=== PATIENT | female | born 1950 | race Caucasian/White ===

== ENCOUNTER 2017-12-13 00:29 | Outpatient (CLI) | payer MEDICARE, BC, SELFPAY ==
--- NOTE | 2017-12-13 09:25 | DI.MAMMO_ITS ---
SYMPTOM/DIAGNOSIS: SCREENING, PERSONAL H/O BREAST CA, D05.10 MAMMOGRAMS: Mammograms were interpreted according to the usual protocol including computer analysis with CAD system, tomosynthesis and C view imaging. Comparison is made with prior examinations. Patient is status post left mastectomy. Breast density, Category C. No suspicious masses or microcalcifications are seen. There has been no significant change compared to the prior examinations. IMPRESSION: No evidence for malignancy. Yearly mammography is recommended. Category 1. MQSA ASSESSMENT OF FINDINGS: Negative. Category 1. Patient will receive a letter notifying them of these results. Bi-RADS category C. The breasts are heterogeneously dense, which may obscure small masses.
== END 2017-12-13 00:49 ==
PROVIDERS: PCP Family Medicine; Visit Provider Family Medicine
DX: Z12.31 Encounter for screening mammogram for malignant neoplasm of breast (principal); Z85.3 Personal history of malignant neoplasm of breast
CPT/HCPCS: 77063; 77067

== ENCOUNTER 2017-12-23 14:23 | Outpatient (CLI) | payer MEDICARE, BC, SELFPAY ==
[2017-12-23 15:50] LABS: HCT 37.1 % (36.0-46.0); HGB 12.3 g/dL (12.0-15.5); Mean Corp. HGB Concentration 33.2 g/dL (32.0-36.0); Mean Corpuscular Hemoglobin 30.6 pg (27.0-33.0); Mean Corpuscular Volume 92.3 fL (80-95); Mean Platelet Volume 9.9 fL (8.0-11.0); Platelet Count 266 x1000/uL (130-400); RBC 4.02 m/cumm (4.00-5.20); White Blood Cell Count 4.44 k/cumm (4.4-10.8)
[2017-12-23 16:16] LABS: ALT 30 U/L (12-78); AST 24 U/L (15-37); Alkaline Phosphatase 70 U/L (46-116); Anion Gap 11.4 mmol/L (3-11); BUN 14 mg/dL (7-18); Bilirubin, Total 0.4 mg/dL (0.2-1.0); CO2 26.6 mmol/L (21.0-32.0); Calcium 9.1 mg/dL (8.5-10.1); Chloride 102 mmol/L (98-107); Glucose 128 mg/dL (70-100); Potassium 4.2 mmol/L (3.5-5.1); Sodium 140 mmol/L (136-145); Total Protein 6.9 g/dL (6.4-8.2)
== END 2017-12-23 14:43 ==
PROVIDERS: PCP Family Medicine; Visit Provider Family Medicine
DX: R30.0 Dysuria; Z01.818 Encounter for other preprocedural examination
CPT/HCPCS: 36415; 80053; 85027; 87077; 81003; 87086; 87186

== ENCOUNTER → 2018-10-21 10:56 | Outpatient (BNVA) | payer MEDICARE, BC, SELFPAY | PROVIDERS: PCP Family Medicine; Referring Provider Family Medicine; Visit Provider Physical Therapy Assistant | DX: K21.9 Gastro-esophageal reflux disease without esophagitis (principal); Z12.11 Encounter for screening for malignant neoplasm of colon | CPT/HCPCS: 99213 ==

== ENCOUNTER 2018-10-25 16:30 | Outpatient (CLI) | payer MEDICARE, BC, SELFPAY ==
--- NOTE | 2018-10-25 14:50 | DI.DEXA_ITS ---
SYMPTOM/DIAGNOSIS: OSTEOPENIA, M85.88 DEXA SCAN: Dexa scan was performed according to the usual protocol. Please see the data sheets on PAC's. The findings for lumbar spine scanning are T score of 1.5, L 4 is excluded due to presence of metallic fixation devices. Left hip scanning shows T score of -.1 with left femoral neck T score of -.9. Right forearm scanning shows T score of -1.9. CONCLUSION: Findings consistent with osteopenia. Lateral vertebral scanogram shows mild loss of height anteriorly of a couple mid thoracic vertebral bodies. The findings are consistent with mild chronic compression fractures. Prior scanning of 05/2008 showed left hip T score of 1.1 and lumbar spine T score of 1.7.
== END 2018-10-25 16:50 ==
PROVIDERS: PCP Family Medicine; Visit Provider Family Medicine
DX: M85.88 Other specified disorders of bone density and structure, other site (principal); M48.54XD Collapsed vertebra, not elsewhere classified, thoracic region, subsequent encounter for fracture with routine healing
CPT/HCPCS: 77080

== ENCOUNTER 2018-10-28 07:50 | Outpatient (CLI) | payer MEDICARE, BC, SELFPAY ==
--- NOTE | 2018-10-28 08:19 | MERGE_ITS ---
*[facility]* *[facility]* [address] [place] [address] Date of study: 10/28/2018 Transthoracic Echocardiography M-mode, complete 2D, complete spectral Doppler, and color Doppler *STUDY CONCLUSIONS* Summary: 1. Left ventricle: The cavity size was normal. Wall thickness was normal. Systolic function was normal. The estimated ejection fraction was 55-60%. Wall motion was normal; there were no regional wall motion abnormalities. 2. Right ventricle: The cavity size was normal. Wall thickness was normal. Systolic function was normal. 3. Pulmonary arteries: Pulmonary systolic pressure was at the upper limits of normal. PA peak pressure: 33mm Hg (S). *PATIENT PRESENTATION* Height: 162.6cm (64in ) S/D Pressure: 152 / 82 Weight: 68kg (149.7lb ) BSA: 1.77m^2 Test start time: 08:30 AM. Test stop time: 09:25 AM. CONSULTING Megan Lowery ORDERING Megan Lowery REFERRING Megan Lowery PERFORMING Unknown PERFORMING [facility] [employer] Vivien Baum *PROCEDURE DATA* Procedure information: This study was interpreted by [facility]. Pertinent images and digital data are archived for permanent storage and are available for subsequent review. Study status: Routine. Transthoracic echocardiography. M-mode, complete 2D, complete spectral Doppler, and color Doppler. A Transthoracic Echocardiogram was performed. Scanning was performed from the parasternal, apical, subcostal, and suprasternal notch acoustic windows. Images were obtained using an [employer] SC 2000 cardiac ultrasound machine. Image quality was adequate. Study completion: The patient tolerated the procedure well. History: PMH: SOB. *CARDIAC ANATOMY* Left ventricle: The cavity size was normal. Wall thickness was normal. Systolic function was normal. The estimated ejection fraction was 55-60%. Wall motion was normal; there were no regional wall motion abnormalities. Aortic valve: Trileaflet; normal thickness leaflets. Mobility was not restricted. Doppler: Transvalvular velocity was within the normal range. There was no stenosis. There was no significant regurgitation. VTI ratio of LVOT to aortic valve: 0.72. Valve area (VTI): 2cm^2. Indexed valve area (VTI): 1.1cm^2/m^2. Peak velocity ratio of LVOT to aortic valve: 0.72. Valve area (Vmax): 2cm^2. Indexed valve area (Vmax): 1.1cm^2/m^2. Mean velocity ratio of LVOT to aortic valve: 0.68. Valve area (Vmean): 1.9cm^2. Indexed valve area (Vmean): 1.1cm^2/m^2. Mean gradient (S): 3.2mm Hg. Peak gradient (S): 6.1mm Hg. Aorta: Aortic root: The aortic root was normal in size. Ascending aorta: The ascending aorta was normal in size. Mitral valve: Structurally normal valve. Mobility was not restricted. Doppler: Transvalvular velocity was within the normal range. There was no evidence for stenosis. There was trivial regurgitation. Valve area by pressure half-time: 3.3cm^2. Indexed valve area by pressure half-time: 1.8cm^2/m^2. Left atrium: The atrium was at the upper limits of normal in size. Right ventricle: The cavity size was normal. Wall thickness was normal. Systolic function was normal. Pulmonic valve: Poorly visualized. Doppler: Transvalvular velocity was within the normal range. There was no evidence for stenosis. There was no significant regurgitation. Peak gradient (S): 1.8mm Hg. Tricuspid valve: Structurally normal valve. Doppler: Transvalvular velocity was within the normal range. There was no evidence for stenosis. There was trivial regurgitation. Pulmonary artery: Poorly visualized. Pulmonary systolic pressure was at the upper limits of normal. Right atrium: The atrium was normal in size. Pericardium: There was no pericardial effusion. Systemic veins: Inferior vena cava: The vessel was dilated. The respirophasic diameter changes were blunted (less than 50%), consistent with elevated central venous pressure. Diameter: 2.2cm. Measurements IVC Value Reference ID 2.2 cm Left ventricle Value Reference LV ID, ED, PLAX 4.5 cm 3.5 - 6.0 LV ID, ES, PLAX 3.1 cm 2.1 - 4.0 LV PW thickness, ED, PLAX 0.9 cm LV end-diastolic volume, 1-p A2C 81 ml LV ejection fraction, 1-p A2C 61 % LV end-diastolic volume, 1-p A4C 78 ml LV ejection fraction, 1-p A4C 55 % LV e', lateral 0.083 m/sec LV E/e', lateral 8 LV e', medial 0.092 m/sec LV E/e', medial 7 LV e', average 0.088 m/sec LV E/e', average 8 Ventricular septum Value Reference IVS thickness, ED, PLAX 0.9 cm LVOT Value Reference LVOT ID, A-P 1.9 cm LVOT area 2.8 cm^2 LVOT peak velocity, S 0.89 m/sec LVOT mean velocity, S 0.57 m/sec LVOT VTI, S 18.6 cm LVOT peak gradient, S 3.2 mm Hg LVOT mean gradient, S 1.5 mm Hg Stroke volume (SV), LVOT DP 51 ml Stroke index (SV/bsa), LVOT DP 29 ml/m^2 Aortic valve Value Reference Aortic valve peak velocity, S 1.2 m/sec Aortic valve mean velocity, S 0.8 m/sec Aortic valve VTI, S 26.0 cm Aortic mean gradient, S 3.2 mm Hg Aortic peak gradient, S 6.1 mm Hg VTI ratio, LVOT/AV 0.72 Aortic valve area, VTI 2 cm^2 Velocity ratio, peak, LVOT/AV 0.72 Aortic valve area, peak velocity 2 cm^2 Velocity ratio, mean, LVOT/AV 0.68 Aortic valve area, mean velocity 1.9 cm^2 Aortic valve area/bsa, mean velocity 1.1 cm^2/m^2 Aorta Value Reference Aortic root ID, ED 3.2 cm Ascending aorta ID, A-P, S 3.3 cm Left atrium Value Reference LA ID, A-P, ES 3.1 cm LA ID/bsa, A-P 1.8 cm/m^2 <=2.2 LA volume, ES, 2-p 50 ml LA volume/bsa, ES, 2-p 29 ml/m^2 LA/aortic root ratio 0.97 Mitral valve Value Reference Mitral E-wave peak velocity 0.66 m/sec Mitral A-wave peak velocity 0.74 m/sec Mitral deceleration time (H) 233 ms 150 - 230 Mitral pressure half-time 68 ms Mitral E/A ratio, peak 0.89 Mitral valve area, PHT, DP 3.3 cm^2 Pulmonary arteries Value Reference PA pressure, S, DP (H) 33 mm Hg <=30 Tricuspid valve Value Reference Tricuspid regurg peak velocity 2.2 m/sec Tricuspid peak RV-RA gradient 19.5 mm Hg Right atrium Value Reference RA area, ES, A4C 13.8 cm^2 8.3 - 19.5 Systemic veins Value Reference Estimated CVP 15 mm Hg Right ventricle Value Reference RV pressure, S, DP (H) 35 mm Hg <=30 Pulmonic valve Value Reference Pulmonic peak gradient, S 1.8 mm Hg Legend: (L) and (H) enrico values outside specified reference range. I have personally reviewed the images and have reviewed and edited the reported findings. Electronically signed by Maricruz Gauthier 10/30/2018 09:59
== END 2018-10-28 08:10 ==
PROVIDERS: PCP Family Medicine; Visit Provider Family Medicine
DX: R06.02 Shortness of breath (principal)
CPT/HCPCS: 93306

== ENCOUNTER 2018-11-14 07:54 | Day surgery (SDC) | payer MEDICARE, BC, SELFPAY ==
--- NOTE | 2018-11-14 07:02 | W.PM.ENDDOP ---
Date of service: 11/14/18 Time of Service: 10:16 Endoscopy Report DATE OF PROCEDURE: 11/14/18 PRE-OP DIAGNOSIS: Colon Cancer Screening and GERD PROCEDURE: 1. EGD with bx 2. Colonoscopy with biopsy SURGEON: Tamy Adler ANESTHESIA: other (General/ ASA 2/Connie Rod, GISSELLE) ESTIMATED BLOOD LOSS: 3 PATHOLOGY: other (GE junction, ascending colon bx x3) COMPLICATIONS: None DISPOSITION: same day INDICATIONS: Mrs. Harman is a pleasant 68 year old female seen in the office for a screening colonoscopy and also for GERD. Last colonoscopy was in 2003 and was unremarkable. EGD and Colonoscopy were recommended. Risks, benefits and complications have been reviewed. Complications include but are not limited to bleeding, pain, perforation, missed small lesion/polyp, sore throat, aspiration and adverse reaction to the medications. Questions were entertained and answered to their satisfaction and they wished to proceed. No guarantees were given or implied. PREP: Miralax/Dulcolax PROCEDURE START TIME: 10:16 PROCEDURE END TIME: 11:13 COLONOSCOPY RETRACTION TIME: 23 minutes FINDINGS: Normal duodenum. No inflammation in the stomach. benign fundic gland polyps. Slight irregularity of the GE junction without inflammation PROCEDURE DESCRIPTION: After informed consent was obtained the patient was take to the procedure room and placed in a supine position. Monitors were applied and a time out was done. The patients name, date of , procedure type, allergies to medications and metal in their body was reviewed. A bite block was placed and the patient was sedated. Once sedated and comfortable the gastroscope was advanced through the oropharynx which was grossly normal into the esophagus. The proximal,mid-esophagus and distal esophagus were normal. The scope was advanced into the stomach and through the pylorus into the 3rd portion of the duodenum. The duodenum was noted to be normal. The scope was retracted back into the stomach which had no inflammation. There were benign fundic gland polyps noted. The scope was retroflexed. The cardia and fundus were noted to be normal. There was no hiatal hernia noted. The scope was retracted back into the esophagus and biopsies were done of the GE junction to rule out Mcnamara's. The Z line was irregular only in small area. The GE junction was at 40 cm. Biopsies of the GE junction were done. While the patient was still sedated they were placed in a left decubitous position. A rectal exam was done. External exam was normal. Internal exam revealed a normal sphincter tone and no palpable masses. The scope was then introduced and retro-flexed. Grade 1 internal hemorrhoids were identified. There were no masses or polyps identified. The scope was then advanced to the cecum with some difficulty due to tortuosity. The TI and appendiceal orifice were identified. The prep was adequate. The scope was then slowly retracted over 23 minutes back into the rectum. 3 sessile polyps were removed with forceps in the ascending colon just distal to the cecum. The scope was removed and the patient was woken up and taken back to Same day surgery in stable condition. The patient tolerated the procedure well and there were no immediate complications. Follow up: depends on final pathology.
--- NOTE | 2018-11-14 07:04 | W.PM.DSUDISC ---
Discharge Plan Disposition Patient Disposition: HOME Condition: Good Discharge Details Reason For Visit: Colon Cancer Screening/ GERD Attending Provider: Tamy Adler Primary Care Provider: Megan Lowery Home Meds and New Rx's Prescriptions: Continued estradiol [Vagifem] 10 mcg tablet 10 mcg VG PRN RF: 0 fluticasone propion-salmeterol [Advair Diskus] 250-50 mcg/dose blister with device 1 inh IH BID Qty: 180 RF: 4 MIRALAX 527 GM powder 17 g PO PRN RF: 0 cetirizine [Zyrtec] 10 MG tablet 1 tab PO DAILY Qty: 90 RF: 4 fluticasone propion-salmeterol [Advair Diskus] 1 EACH blister with device 1 puff Inhalation BID Qty: 3 RF: 4 cyclobenzaprine 10 MG tablet 10 mg PO TID PRNQty: 90 RF: 1 levetiracetam [Keppra] 250 mg tablet 250 mg PO BID Qty: 180 RF: 12 fluticasone propionate 50 mcg/actuation spray,suspension 1 spray NS BID Qty: 3 RF: 12 pantoprazole 40 mg tablet,delayed release (DR/EC) 40 mg PO DAILY Qty: 90 RF: 11 duloxetine 60 mg capsule,delayed release(DR/EC) 60 mg PO DAILY Qty: 90 RF: 12 celecoxib [Celebrex] 200 mg capsule 200 mg PO DAILY Qty: 90 RF: 4 temazepam 7.5 mg capsule 7.5 mg PO QHS PRN (Reason: sleep) Qty: 30 RF: 3 acetaminophen [Tylenol Arthritis] 650 mg tablet extended release 1,300 mg PO DAILY PRNRF: 0 diclofenac sodium 3 % gel 2 - 4 gm TP BID Qty: 100 RF: 3 Discontinued bisacodyl [Dulcolax (bisacodyl)] 5 mg tablet,delayed release (DR/EC) 5 mg PO ONCE Qty: 4 RF: 0 polyethylene glycol 3350 17 gram/dose powder 238 g PO ONCE Qty: 238 RF: 0 Discharge Instructions Instructions: Colorectal Polyps (GEN), Hemorrhoids (ED) Additional Instructions: Findings: 3 sessile polyps Normal upper Follow up: depends on final pathology Please call if you develop: fevers >101.5 Nausea or Vomiting Abdominal pain that is not transient DAY SURGERY UNIT POST ENDOSCOPY INSTRUCTIONS 1. Because there will be medication in your system for the next 24 hours, you may feel a little sleepy. Your coordination will be affected. Therefore: a. Do not drive or operate dangerous equipment for 24 hours. b. Do not drink alcohol beverages for 24 hours (not even beer). c. Plan to go home and rest for the day. 2. Generally there are no restrictions on your activity after a day or so has gone by, but you may feel a bit fatigued for a few days. 3 After you arrive home you may have a light meal and return to a normal diet as you can tolerate it without feeling sick to your stomach. 4. After surgery, you may feel pain or discomfort. This should be only transient, but if it persists please contact your doctor. 5. If there are any questions regarding the findings of your procedure, please feel free to contact your doctor. 6. If you are unable to contact your doctor with a problem, contact the hospital at [phone]. 7. Continue all your regular medications unless directed otherwise. I understand the above instructions and have no questions. Signature of Patient or Responsible Adult Escort Date/Time Name of Responsible Adult Escort Signature of Nurse Date/Time Activity:: Activity as Tolerated Diet:: high fiber diet Discharge Orders Discharge Orders: Discharge Order (Routine); Ordered 11/14/18 Ordered By: Tamy Adler DS: Diagnosis Discharge Diagnosis (1) Colonoscopy - IV Sedation: Status: None (2) H/O esophagogastroduodenoscopy: Status: Acute (3) Colorectal polyps: Status: Acute
[2018-11-14 08:18] VITALS: BP 140/93; PULSE 88; RESP 16; TEMP 36.7; O2SAT 96
[2018-11-14] MEDS: Lactated Ringers 1,000 ML 80 ML IV (08:34)
--- NOTE | 2018-11-14 10:21 | ESO_PTH ---
PATIENT: ANNALISE BRENNAN LOC: [facility] U#:[id number] AGE/SX: 68/F ROOM: RE11/14/[address]: Tamy Adler MD : 1950 BED: DIS: 11/14/2018 SPEC #: [id number] RECD: 11/14/18 12:41 STATUS: NUZHAT RE #: [id number] BROOKE: 11/14/18 10:[address]: Tamy Adler DEPT: Surgical Specimen RECD BY: Gala Koch ENTERED: 11/14/18 12:43 SP TYPE: Eso OTHR DR: Megan Lowery MD, DC Tissues: 1 - ESOPHAGUS BIOPSY 2 - BIOPSY BOWEL Procedures: GROSS AND MICRO LEVEL 4 Comments: [id number]
[2018-11-14 11:47] VITALS: BP 121/68; PULSE 76; RESP 16; TEMP 36.3; O2SAT 97
== END 2018-11-14 12:14 | disposition home or self-care (01) ==
LOC: SUR 08:00
PROVIDERS: PCP Family Medicine; Visit Provider Surgery
PROC: (CPT 45380; principal; 2018-11-14 09:30)
DX: Z12.11 Encounter for screening for malignant neoplasm of colon (principal); K21.0 Gastro-esophageal reflux disease with esophagitis; D12.2 Benign neoplasm of ascending colon; K31.7 Polyp of stomach and duodenum; K63.89 Other specified diseases of intestine; K64.0 First degree hemorrhoids; Z87.19 Personal history of other diseases of the digestive system; Z85.3 Personal history of malignant neoplasm of breast
CPT/HCPCS: 45380; 43239; 88305; J2405